=== PATIENT | male | born 1990 | race Caucasian/White ===

== ENCOUNTER 2018-12-24 09:47 | Emergency (ER) | payer MEDICARE, OTHER ==
[2018-12-24 10:17] VITALS: RESP 18
--- NOTE | 2018-12-24 10:43 | ED ---
Male Urogenital HPI <Robert Agustin Rebel - Last Filed: 12/24/18 12:18> - General Source: patient, RN notes reviewed Mode of arrival: ambulatory Limitations: no limitations <Kvng Craven - Last Filed: 12/24/18 12:23> - General Chief complaint: Urogenital Stated complaint: Male Gu Time Seen by Provider: 12/24/18 10:19 - History of Present Illness Initial comments: 28-year-old male presents emergency Department chief complaint of priapism. Patient states that he's had this in the past ever taken trazodone but denies taking any medications at this time. Patient states he woke up around 5 AM with erection. Patient states that he did ejaculate with no relief of symptoms. Patient states he had it drained in the past by Dr. Cast. Patient denies any dysuria. Patient denies taking any supplements denies abdominal pain. Patient does have discomfort in his penile shaft at this time. (Kvng Craven) - Related Data Home Medications Medication Instructions Recorded Confirmed Loratadine [Claritin] 10 mg PO DAILY 12/24/18 12/24/18 Allergies Allergy/AdvReac Type Severity Reaction Status Date / Time amoxicillin Allergy Rash/Hives Verified 12/24/18 10:17 Penicillins Allergy Rash/Hives Verified 12/24/18 10:17 Review of Systems ROS Other: All systems not noted in ROS Statement are negative. <Robert Agustin Rebel - Last Filed: 12/24/18 12:18> ROS Other: All systems not noted in ROS Statement are negative. <Kvng Craven - Last Filed: 12/24/18 12:23> ROS Statement: Those systems with pertinent positive or pertinent negative responses have been documented in the HPI. Past Medical History Past Medical History: Asthma History of Any Multi-Drug Resistant Organisms: None Reported Past Surgical History: Ear Surgery Past Psychological History: ADD/ADHD, Bipolar Smoking Status: Current every day smoker Past Alcohol Use History: Occasional Past Drug Use History: Marijuana <Kvng Craven - Last Filed: 12/24/18 12:23> General Exam Limitations: no limitations General appearance: alert, in no apparent distress Neck exam: Present: normal inspection. Absent: tenderness, meningismus, lymphadenopathy Respiratory exam: Present: normal lung sounds bilaterally. Absent: respiratory distress, wheezes, rales, rhonchi, stridor Cardiovascular Exam: Present: regular rate, normal rhythm, normal heart sounds. Absent: systolic murmur, diastolic murmur, rubs, gallop, clicks GI/Abdominal exam: Present: soft, normal bowel sounds. Absent: distended, tenderness, guarding, rebound, rigid exam: Present: circumcision, other (erection is noted). Absent: testicular tenderness, urethral discharge, scrotal swelling <Kvng Craven - Last Filed: 12/24/18 12:23> Course Vital Signs 12/24/18 10:13 Temperature 97.9 F Pulse Rate 80 Respiratory 18 Rate Blood Pressure 132/79 O2 Sat by Pulse 98 Oximetry Medical Decision Making <Robert Agustin - Last Filed: 12/24/18 12:18> - Medical Decision Making Procedure note: drainage of priapism. Consent was obtained. Sterile field was obtained, patient had cleansing with chlorhexidine. Lidocaine was infiltrated at the base of the penis bilaterally at the 2 o'clock position and 10 o'clock position. Approximately 70 mL of blood was drained from bilateral corporis cavernosa. Phenylephrine was injected bilaterally. Patient tolerated procedure well. There is minimal hematoma bilaterally after the procedure. Case was discussed with urology, Dr. Rankin, patient will follow-up as an outpatient. (Robert Agustin) Disposition <InoRobert tarango - Last Filed: 12/24/18 12:18> Is patient prescribed a controlled substance at d/c from ED?: No Time of Disposition: 12:23 <Kvng Craven - Last Filed: 12/24/18 12:23> Clinical Impression: Priapism Disposition: HOME SELF-CARE Condition: Stable Instructions (If sedation given, give patient instructions): Priapism (ED) Additional Instructions: Please return to the Emergency Department if symptoms worsen or any other concerns. Referrals: None,Stated [Primary Care Provider] - 1-2 days Elliott Rankin MD [STAFF PHYSICIAN] - 1-2 days
[2018-12-24] MEDS ORDERED: PHENYLEPHRINE 10 MG/ML VIAL SQ STA (10:46)
[2018-12-24] MEDS ORDERED: PHENYLEPHRINE 5 MG, SODIUM CHLORIDE 0.9% (PF) VIAL 9.5 ML INTRA-CAVE PRN ×2 (10:52)
[2018-12-24] MEDS ORDERED: MORPHINE SULFATE 4 MG/ML SYRINGE IM STA (11:01)
[2018-12-24] MEDS ORDERED: TERBUTALINE 1 MG/ML VIAL SQ STA (11:01)
[2018-12-24] MEDS ORDERED: LIDOCAINE 1% INJ 10MG/ML (20 ML MDV) SQ ONE (11:13)
[2018-12-24 12:37] VITALS: BP 121/78; PULSE 70; TEMP 98.3
== END 2018-12-24 12:37 | disposition home or self-care (01) ==
LOC: EC 09:47
DX: N48.30 Priapism, unspecified (principal); F17.200 Nicotine dependence, unspecified, uncomplicated; Z88.0 Allergy status to penicillin; Z79.899 Other long term (current) drug therapy; Z98.890 Other specified postprocedural states
CPT/HCPCS: 99283; 54220; 96372 ×2; J2270; J3105; J2370; J2001

== ENCOUNTER 2020-04-09 14:18 | Emergency (ER) | payer MEDICARE, OTHER ==
--- NOTE | 2020-04-09 14:48 | ED ---
General Adult HPI - General Stated complaint: Mental Health Time Seen by Provider: 04/09/20 14:30 Source: patient, RN notes reviewed Limitations: no limitations - History of Present Illness Initial comments: 29-year-old male with a past medical history of asthma, bipolar disorder presents to the emergency room with petition. Patient reports that he was at [place] being evaluated for methamphetamine use. Patient reports that he stated he wanted to "end it all". Patient reports that he meant it as an he wants to end his drug abusing get his life back on track however [place] take it as he wanted to end his own life. Patient reports that when he said this the reticle printer left the room and came back with the police stating he was petition. Patient denies any thoughts whatsoever of harming himself or anyone else. Denies suicidal thoughts.Patient has no other complaints at this time including shortness of breath, chest pain, abdominal pain, nausea or vomiting, headache, or visual changes. - Related Data Home Medications Medication Instructions Recorded Confirmed Loratadine [Claritin] 10 mg PO DAILY 12/24/18 12/24/18 Allergies Allergy/AdvReac Type Severity Reaction Status Date / Time amoxicillin Allergy Rash/Hives Verified 12/24/18 10:17 Penicillins Allergy Rash/Hives Verified 12/24/18 10:17 Review of Systems ROS Statement: Those systems with pertinent positive or pertinent negative responses have been documented in the HPI. ROS Other: All systems not noted in ROS Statement are negative. Past Medical History Past Medical History: Asthma History of Any Multi-Drug Resistant Organisms: None Reported Past Surgical History: Ear Surgery Past Psychological History: ADD/ADHD, Bipolar Past Alcohol Use History: Occasional Past Drug Use History: Marijuana General Exam General appearance: alert, in no apparent distress Head exam: Present: atraumatic, normocephalic, normal inspection Eye exam: Present: normal appearance, PERRL, EOMI. Absent: scleral icterus, conjunctival injection, periorbital swelling ENT exam: Present: normal exam, mucous membranes moist Neck exam: Present: normal inspection, full ROM. Absent: tenderness, meningismus, lymphadenopathy Respiratory exam: Present: normal lung sounds bilaterally. Absent: respiratory distress, wheezes, rales, rhonchi, stridor Cardiovascular Exam: Present: regular rate, normal rhythm, normal heart sounds. Absent: systolic murmur, diastolic murmur, rubs, gallop, clicks GI/Abdominal exam: Present: soft, normal bowel sounds. Absent: distended, tenderness, guarding, rebound, rigid Neurological exam: Present: alert, oriented X3, normal gait Psychiatric exam: Present: normal affect, normal mood Course Vital Signs 04/09/20 04/09/20 04/09/20 14:45 18:00 21:58 Temperature 97.0 F L 98.3 F Pulse Rate 93 97 75 Respiratory 16 18 17 Rate Blood Pressure 140/87 127/67 125/67 O2 Sat by Pulse 99 96 98 Oximetry Medical Decision Making - Medical Decision Making Patient denies any suicidal thoughts. Patient has been cooperative throughout his ER stay. Patient was evaluated by EPS, recommending discharge back to [place]. - Lab Data Lab Results 04/09/20 Range/Units 15:25 Urine Opiates Screen Not Detected (NotDetected) Ur Oxycodone Screen Not Detected (NotDetected) Urine Methadone Screen Not Detected (NotDetected) Ur Propoxyphene Screen Not Detected (NotDetected) Ur Barbiturates Screen Not Detected (NotDetected) U Tricyclic Antidepress Not Detected (NotDetected) Ur Phencyclidine Scrn Not Detected (NotDetected) Ur Amphetamines Screen Not Detected (NotDetected) U Methamphetamines Scrn Not Detected (NotDetected) U Benzodiazepines Scrn Not Detected (NotDetected) Urine Cocaine Screen Not Detected (NotDetected) U Marijuana (THC) Screen Not Detected (NotDetected) Disposition Clinical Impression: Adjustment reaction Disposition: HOME SELF-CARE Condition: Good Instructions (If sedation given, give patient instructions): Methamphetamine Abuse (ED) Is patient prescribed a controlled substance at d/c from ED?: No Referrals: Bakari Avitia MD [REFERRING] - 1-2 days Time of Disposition: 22:35
[2020-04-09 15:55] LABS: Amphetamine Screen,Urine Not Detected (NotDetected); Barbiturate Screen,Urine Not Detected (NotDetected); Benzodiazepines Screen,Urine Not Detected (NotDetected); Cocaine Screen,Urine Not Detected (NotDetected); Methadone Screen, Urine Not Detected (NotDetected); Opiate Screen,Urine Not Detected (NotDetected); Oxycodone Screen, Urine Not Detected (NotDetected); Phencyclidine Screen,Urine Not Detected (NotDetected); Tricyclic Antidepressant,Urine Not Detected (NotDetected); Urn Cannabinoid Scrn Not Detected (NotDetected)
[2020-04-09 22:49] VITALS: BP 129/81; PULSE 88; RESP 18; TEMP 97.9
== END 2020-04-09 22:49 | disposition home or self-care (01) ==
LOC: EC 14:18
DX: F43.20 Adjustment disorder, unspecified (principal); Z88.0 Allergy status to penicillin; Z88.1 Allergy status to other antibiotic agents
CPT/HCPCS: 80306; 82075; 99284

== ENCOUNTER 2020-10-07 09:09 | Emergency (ER) | payer MEDICARE, OTHER ==
[2020-10-07 09:12] VITALS: RESP 16; TEMP 97.8
--- NOTE | 2020-10-07 09:37 | ED ---
General Adult HPI - General Chief complaint: Upper Respiratory Infection Stated complaint: Congestion Time Seen by Provider: 10/07/20 09:17 Source: patient, RN notes reviewed, old records reviewed Mode of arrival: ambulatory Limitations: no limitations - History of Present Illness Initial comments: 30-year-old male history of asthma presenting for evaluation of nasal congestion, cough, dyspnea. Patient has been sick for several days. No reported fever. Uncertain if he has come in contact with anyone with coronavirus. Denies central chest pain. Denies abdominal pain nausea vomiting. He states he was tested for coronavirus several weeks ago and this was negative. He is currently on Symbicort and uses an albuterol inhaler as needed. - Related Data Home Medications Medication Instructions Recorded Confirmed Albuterol Inhaler [Ventolin Hfa 1 puff INHALATION RT-Q6H PRN 10/07/20 10/07/20 Inhaler] Budesonide/Formoterol Fumarate 1 puff INHALATION RT-BID 10/07/20 10/07/20 [Symbicort 160-4.5 Mcg Inhaler] Divalproex ER [Depakote ER] 500 mg PO HS 10/07/20 10/07/20 Previous Rx's Medication Instructions Recorded predniSONE 50 mg PO DAILY #5 tab 10/07/20 Allergies Allergy/AdvReac Type Severity Reaction Status Date / Time amoxicillin Allergy Rash/Hives Verified 10/07/20 10:06 Penicillins Allergy Rash/Hives Verified 10/07/20 10:06 Review of Systems ROS Statement: Those systems with pertinent positive or pertinent negative responses have been documented in the HPI. ROS Other: All systems not noted in ROS Statement are negative. Past Medical History Past Medical History: Asthma History of Any Multi-Drug Resistant Organisms: None Reported Past Surgical History: Ear Surgery Past Psychological History: ADD/ADHD, Bipolar Smoking Status: Current every day smoker Past Alcohol Use History: None Reported Past Drug Use History: None Reported General Exam Limitations: no limitations General appearance: alert, in no apparent distress Head exam: Present: atraumatic, normocephalic Eye exam: Present: normal appearance, PERRL ENT exam: Present: other (Nasal congestion) Respiratory exam: Present: wheezes, rhonchi. Absent: respiratory distress Cardiovascular Exam: Present: regular rate, normal rhythm GI/Abdominal exam: Present: soft. Absent: distended, tenderness, guarding, rebound Extremities exam: Present: normal inspection, normal capillary refill. Absent: pedal edema, calf tenderness Neurological exam: Present: alert, oriented X3, CN II-XII intact. Absent: motor sensory deficit Psychiatric exam: Present: normal affect, normal mood Skin exam: Present: warm, dry, intact. Absent: cyanosis, diaphoretic Course Vital Signs 10/07/20 10/07/20 10/07/20 09:10 09:44 10:10 Temperature 97.8 F Pulse Rate 107 H 79 Respiratory 16 16 16 Rate Blood Pressure 144/77 125/80 O2 Sat by Pulse 99 100 Oximetry Medical Decision Making - Medical Decision Making Chest x-ray performed, showing some hyperinflation, no focal infiltrate, no pneumothorax. 30-year-old male history of asthma presenting with cough, congestion, mild dyspnea. He has good air entry, mild tachypnea, no severe respiratory distress. Coronavirus is sent which is negative. Chest x-ray negative for focal pneumonia. Patient will be started on a short course of steroids for asthma exacerbation and URI. He will return with worsening or changing symptoms, will follow-up with his primary care physician. - Lab Data Lab Results 10/07/20 Range/Units 09:22 Coronavirus (PCR) Not Detected (Not Detectd) Disposition Clinical Impression: URI (upper respiratory infection), Asthma Disposition: HOME SELF-CARE Condition: Good Instructions (If sedation given, give patient instructions): Upper Respiratory Infection (ED), Asthma (ED) Prescriptions: predniSONE 50 mg PO DAILY #5 tab Is patient prescribed a controlled substance at d/c from ED?: No Referrals: None,Stated [Primary Care Provider] - 1-2 days Jessica Soliz MD [REFERRING] - 1-2 days Time of Disposition: 10:29
--- NOTE | 2020-10-07 09:38 | XR ---
EXAMINATION TYPE: XR chest 2V DATE OF EXAM: 10/07/2020 COMPARISON: 11/03/2014 TECHNIQUE: PA and lateral views submitted. HISTORY: Cough FINDINGS: The lungs are clear and there is no pneumothorax, pleural effusion, or focal pneumonia. Hyperinflat ion. No overt failure. Biapical pleural thickening. IMPRESSION: 1. No acute process. Correlate for COPD.
[2020-10-07] MEDS ORDERED: predniSONE 50 MG TAB PO STA (10:06)
[2020-10-07 10:11] VITALS: BP 125/80; PULSE 79
== END 2020-10-07 10:44 | disposition home or self-care (01) ==
LOC: EC 09:09
DX: J45.909 Unspecified asthma, uncomplicated (principal); J06.9 Acute upper respiratory infection, unspecified; F17.200 Nicotine dependence, unspecified, uncomplicated; F31.9 Bipolar disorder, unspecified; Z79.899 Other long term (current) drug therapy; Z88.0 Allergy status to penicillin; Z20.822 Contact with and (suspected) exposure to COVID-19
CPT/HCPCS: 87635; 71046; 99285; J7512